=== PATIENT | female | born 1995 | race Caucasian/White ===

== ENCOUNTER 2020-11-22 15:52 | Emergency (ER) | payer SELFPAY ==
--- NOTE | 2020-11-22 16:56 | NUR ---
CALLED X 1. NO SHOW.
--- NOTE | 2020-11-22 17:14 | NUR ---
CALLEDX2. PATIENT LEFT WITHOUT BEING TRIAGED. NO FURTHER CARE PROVIDED FOR PATIENT.
--- NOTE | 2020-11-22 18:12 | NUR ---
PATIENT LEFT WITHOUT BEING SEEN BY DR. ARTHUR. NO FURTHER CARE PROVIDED FOR PATIENT.
--- NOTE | 2020-11-22 18:12 | NUR ---
PT CALLED FOR LAST NIGHT. NO ANSWER
== END 2020-11-22 18:12 | disposition left against medical advice (07) ==
LOC: MED 15:52
DX: F41.9 Anxiety disorder, unspecified (principal); Z53.21 Procedure and treatment not carried out due to patient leaving prior to being seen by health care provider